=== PATIENT | male | born 1965 | race Caucasian/White ===

== ENCOUNTER 2017-09-09 15:11 | Observation (INO) | payer OTHER ==
[~2017-09-09] VITALS: Ht 172.7 cm; Wt 74.0 kg
[2017-09-09] VITALS (8 sets, daily range): BP systolic 137–152; BP diastolic 68–97; PULSE 56–96; RESP 16–18; TEMP 98.4–98.6; O2SAT 98–100
[~2017-09-09 15:11] MED LIST: CELE20TA PO; CYCL10TA PO; HYDR-3534 PO; LORA-392 PO
[2017-09-09] MEDS ORDERED: HYDR-3580 PO (15:27)
[2017-09-09] MEDS ORDERED: ONDANSETRON HCL 4 MG/2 ML VIAL IV PUSH ONE (15:30)
[2017-09-09] MEDS ORDERED: ASPIRIN 81 MG CHEW TAB PO ONE (15:30)
[2017-09-09] MEDS ORDERED: SODIUM CHLORIDE 0.9% FLUSH 10 ML FLUSH IVF PRN (15:30)
[2017-09-09] MEDS ORDERED: MORPHINE SULFATE 4 MG/ML INJ IV PUSH ONE (15:30)
--- NOTE | 2017-09-09 15:45 | RADRPT ---
EXAM DATE/TIME: 09/09/2017 15:31 [facility] COMPARISON: No previous studies available for comparison. INDICATIONS : Left side chest pain with shortness of breath. MEDICAL HISTORY : None. SURGICAL HISTORY : None. ENCOUNTER: Initial ACUITY: 1 day PAIN SCORE: 4/10 LOCATION: Left chest FINDINGS: A single view of the chest demonstrates the lungs to be symmetrically aerated without evidence of mas s, infiltrate or effusion. The cardiomediastinal contours are unremarkable. Osseous structures are intact. Multiple overlying electrocardiogram leads are present. CONCLUSION: No acute disease. Roddy Deluca MD on September 09, 2017 at 15:42 Board Certified Radiologist. This report was verified electronically.
[2017-09-09 15:48] LABS: AUTOMATED NEUTROPHIL # 5.2 TH/MM3 (1.8-7.7); BASOPHIL # 0.3 TH/MM3 (0-0.2); BASOPHIL % 2.7 % (0.0-2.0); EOSINOPHIL # 0.3 TH/MM3 (0-0.4); EOSINOPHIL % 2.7 % (0.0-4.0); HEMOGLOBIN 16.5 GM/DL (13.0-17.0); MEAN CELL VOLUME 93.5 FL (80.0-100.0); MEAN CORPUSCULAR HEMOGLOBIN 31.4 PG (27.0-34.0); MEAN CORPUSCULAR HGB CONC 33.6 % (32.0-36.0); MEAN PLATELET VOLUME 8.5 FL (7.0-11.0); MONO % 6.1 % (0.0-8.0); MONOCYTE # 0.6 TH/MM3 (0-0.9); NEUT % 56.5 % (16.0-70.0); PLATELET COUNT 341 TH/MM3 (150-450); RED BLOOD COUNT 5.24 MIL/MM3 (4.50-5.90); RED CELL DISTRIBUTION WIDTH 13.9 % (11.6-17.2); WHITE BLOOD COUNT 9.4 TH/MM3 (4.0-11.0)
[2017-09-09 15:55] LABS: CHLORIDE 105 MEQ/L (98-107); SODIUM (NA) 136 MEQ/L (136-145)
[2017-09-09 15:59] LABS: ALBUMIN 3.5 GM/DL (3.4-5.0); BICARBONATE 23.6 MEQ/L (21.0-32.0); BLOOD UREA NITROGEN 10 MG/DL (7-18); CALCIUM 8.4 MG/DL (8.5-10.1); GLUCOSE,RANDOM 110 MG/DL (74-106)
[2017-09-09 16:02] LABS: ALT (GPT) 67 U/L (12-78); AST (GOT) 40 U/L (15-37); GLOMERULAR FILTRATION RATE 58 ML/MIN (>89)
[2017-09-09 16:04] LABS: TOTAL BILIRUBIN ADULT 0.6 MG/DL (0.2-1.0); TOTAL PROTEIN 7.5 GM/DL (6.4-8.2)
[2017-09-09 16:05] LABS: ALKALINE PHOSPHATASE 183 U/L (45-117)
[2017-09-09 16:07] LABS: TROPONIN I LESS THAN 0.02 NG/ML (0.02-0.05)
[2017-09-09 16:18] LABS: INTERNATIONAL NORMALIZED RATIO 1.1 RATIO; PROTHROMBIN TIME - PATIENT 10.7 SEC (9.8-11.6)
[2017-09-09] MEDS ORDERED: IOHEXOL 350 MG/ML 10 ML VIAL (for RAD DIAG) IVCONTRAST ONE (16:50)
[2017-09-09] MEDS ORDERED: diphenhydrAMINE HCL 50 MG/ML VIAL IV PUSH ONE (17:00)
--- NOTE | 2017-09-09 17:11 | RADRPT ---
EXAM DATE/TIME: 09/09/2017 16:41 [facility] COMPARISON: CHEST SINGLE AP, September 09, 2017, 15:31. INDICATIONS : Chest pain. IV CONTRAST: 65 cc Omnipaque 350 (iohexol) IV RADIATION DOSE: 13.41 CTDIvol (mGy) MEDICAL HISTORY : Deep venous thrombosis. SURGICAL HISTORY : Appendectomy. ENCOUNTER: Initial ACUITY: 2 days PAIN SCALE: 4/10 LOCATION: chest TECHNIQUE: Volumetric scanning of the chest was performed using a pulmonary embolism protocol MIP images were re constructed. Using automated exposure control and adjustment of the mA and/or kV according to patien t size, radiation dose was kept as low as reasonably achievable to obtain optimal diagnostic quality images. DICOM format image data is available electronically for review and comparison. Follow-up recommendations for detected pulmonary nodules are based at a minimum on nodule size and pa tient risk factors according to Fleischner Society Guidelines. FINDINGS: PULMONARY ARTERIES: The main pulmonary artery and right left branch vessels are intact with no filling defects. There is only a single tiny 4 mm filling defect in one of the medial right lower lobe pulmonary arteries best seen on coronal image #103. LUNGS: There is no consolidation or pneumothorax . No concerning pulmonary nodule is visualized. PLEURAE: There is no pleural thickening or pleural effusion. MEDIASTINUM: There is good visualization of the great vessels of the middle mediastinum. No evidence of mediastin al or hilar adenopathy/mass. MUSCULOSKELETAL: Within normal limits for patient age. MISCELLANEOUS: The visualized upper abdominal organs demonstrate no acute abnormality. CONCLUSION: 1. Single tiny pulmonary emboli in one of the medial right lower lobe pulmonary arteries. 2. The lungs are clear. Roddy Deluca MD on September 09, 2017 at 17:05 Board Certified Radiologist. This report was verified electronically.
--- NOTE | 2017-09-09 17:51 | PD ---
HPI Chief Complaint: Chest Pain Time Seen by Provider: 15:23 Travel History International Travel<30 days: No Contact w/Intl Traveler<30days: No Traveled to known affect area: No History of Present Illness HPI Patient is a 52 year old male who comes in complaining of left sided chest pain that radiates to his back and down his left arm. He says he has had some occasional pain recently, but today it came on severely this afternoon. He says he was laying in bed when it came on. He has had some shortness of breath and nausea. He denies fever chills. Denies cough or cold. He has had superficial clots in his right leg in the past, but no DVTs or PEs in the past. He says that he has a strong family history of cardiac disease and MIs in his father. He is a smoker. Severity is mild to moderate. PFSH Past Medical History Hx Anticoagulant Therapy: No Anxiety: Yes Depression: Yes Diabetes: No Diminished Hearing: No Deep Vein Thrombosis: Yes (KLIPPELTRENAUNAY SYNDROME) Respiratory: Yes (PNEUMONIA [id number]) Tetanus Vaccination: Unknown Past Surgical History Appendectomy: Yes (1973) Social History Alcohol Use: Yes ("MAYBE ONCE A YEAR IF THAT.") Tobacco Use: Yes () Substance Use: No Allergies-Medications (Allergen,Severity, Reaction): Coded Allergies: penicillin G (Unverified Allergy, Intermediate, HIVES, 09/09/17) Iodinated Contrast- Oral and IV Dye (Verified Allergy, Mild, feet and ears itching, 09/10/17) Reported Meds & Prescriptions Reported Meds & Active Scripts Active Review of Systems Except as stated in HPI: all other systems reviewed are Neg General / Constitutional: No: Fever, Chills HENT: No: Headaches, Lightheadedness Cardiovascular: Positive: Chest Pain or Discomfort Respiratory: Positive: Shortness of Breath Gastrointestinal: Positive: Nausea, No: Vomiting Musculoskeletal: No: Edema, Pain Skin: No Rash, No Change in Pigmentation Neurologic: No: Weakness, Dizziness Physical Exam Narrative GENERAL: Awake and alert, no acute distress. SKIN: Focused skin assessment warm/dry. HEAD: Atraumatic. Normocephalic. EYES: Pupils equal and round. No scleral icterus. ENT: Mucous membranes pink and moist. NECK: Trachea midline. No JVD. CARDIOVASCULAR: Regular rate and rhythm. No murmur appreciated. RESPIRATORY: No accessory muscle use. Clear to auscultation. Breath sounds equal bilaterally. GASTROINTESTINAL: Abdomen soft, non-tender, nondistended. MUSCULOSKELETAL: No obvious deformities. No clubbing. No cyanosis. Several varicose veins to the right leg, right leg is enlarged compared to left. NEUROLOGICAL: Awake and alert. No obvious cranial nerve deficits. Motor grossly within normal limits. Normal speech. PSYCHIATRIC: Appropriate mood and affect; insight and judgment normal. Data Data Last Documented VS Vital Signs Date Time Temp Pulse Resp B/P (MAP) Pulse Ox O2 Delivery O2 Flow Rate FiO2 09/09/17 17:03 63 16 144/83 (103) 100 Nasal Cannula 2.00 09/09/17 15:27 98.4 Orders Orders Ckmb (Isoenzyme) Profile (09/09/17 15:29) Complete Blood Count With Diff (09/09/17 15:29) Comprehensive Metabolic Panel (09/09/17 15:29) Prothrombin Time / Inr (Pt) (09/09/17 15:29) Act Partial Throm Time (Ptt) (09/09/17 15:29) Troponin I (09/09/17 15:29) Lipase (09/09/17 15:29) Chest, Single Ap (09/09/17 15:29) Ecg Monitoring (09/09/17 15:29) Bilateral Bp Monitoring (09/09/17 15:29) Iv Access Insert/Monitor (09/09/17 15:29) Oximetry (09/09/17 15:29) Oxygen Administration (09/09/17 15:29) Aspirin Chew (Aspirin Chew) (09/09/17 15:30) Morphine Inj (Morphine Inj) (09/09/17 15:30) Sodium Chloride 0.9% Flush (Ns Flush) (09/09/17 15:30) Ct Pulmonary Angiogram (09/09/17 15:29) Ondansetron Inj (Zofran Inj) (09/09/17 15:30) Iohexol 350 Inj (Omnipaque 350 Inj) (09/09/17 16:50) Diphenhydramine Inj (Benadryl Inj) (09/09/17 17:00) Heparin-D5w 25,000 U/250 Ml (Heparin-D5w (09/09/17 17:45) Act Partial Throm Time (Ptt) (09/10/17 00:31) Admit Order (Ed Use Only) (09/09/17 ) Labs Laboratory Tests Test 09/09/17 15:33 White Blood Count 9.4 TH/MM3 Red Blood Count 5.24 MIL/MM3 Hemoglobin 16.5 GM/DL Hematocrit 49.0 % Mean Corpuscular Volume 93.5 FL Mean Corpuscular Hemoglobin 31.4 PG Mean Corpuscular Hemoglobin Concent 33.6 % Red Cell Distribution Width 13.9 % Platelet Count 341 TH/MM3 Mean Platelet Volume 8.5 FL Neutrophils (%) (Auto) 56.5 % Lymphocytes (%) (Auto) 32.0 % Monocytes (%) (Auto) 6.1 % Eosinophils (%) (Auto) 2.7 % Basophils (%) (Auto) 2.7 % Neutrophils # (Auto) 5.2 TH/MM3 Lymphocytes # (Auto) 3.0 TH/MM3 Monocytes # (Auto) 0.6 TH/MM3 Eosinophils # (Auto) 0.3 TH/MM3 Basophils # (Auto) 0.3 TH/MM3 CBC Comment DIFF FINAL Differential Comment Prothrombin Time 10.7 SEC Prothromb Time International Ratio 1.1 RATIO Activated Partial Thromboplast Time 25.2 SEC Blood Urea Nitrogen 10 MG/DL Creatinine 1.30 MG/DL Random Glucose 110 MG/DL Total Protein 7.5 GM/DL Albumin 3.5 GM/DL Calcium Level 8.4 MG/DL Alkaline Phosphatase 183 U/L Aspartate Amino Transf (AST/SGOT) 40 U/L Alanine Aminotransferase (ALT/SGPT) 67 U/L Total Bilirubin 0.6 MG/DL Sodium Level 136 MEQ/L Potassium Level 3.9 MEQ/L Chloride Level 105 MEQ/L Carbon Dioxide Level 23.6 MEQ/L Anion Gap 7 MEQ/L Estimat Glomerular Filtration Rate 58 ML/MIN Total Creatine Kinase 91 U/L Troponin I LESS THAN 0.02 NG/ML Lipase 414 U/L MDM Medical Decision Making Medical Screen Exam Complete: Yes Emergency Medical Condition: Yes Medical Record Reviewed: Yes Interpretation(s) ECG shows normal sinus rhythm at a rate of 89, short MS interval, no ST elevation or depression Differential Diagnosis ACS versus NSTEMI versus STEMI versus PE Narrative Course Patient is a 52-year-old male who comes in complaining of left-sided chest pain. IV established, labs sent. Patient connected to the athletic monitor. Given an aspirin. Given morphine and Zofran. Labs show a elevated lipase of 414. Troponin is negative. CTA of the chest is concerning for a right-sided pulmonary embolus. Last 24 hours Impressions Chest X-Ray 09/09/17 1529 Signed Impressions: Service Date/Time: Saturday, September 09, 2017 15:31 - CONCLUSION: No acute disease. Roddy Deluca MD CT Angiography 09/09/17 1529 Signed Impressions: Service Date/Time: Saturday, September 09, 2017 16:41 - CONCLUSION: 1. Single tiny pulmonary emboli in one of the medial right lower lobe pulmonary arteries. 2. The lungs are clear. Roddy Deluca MD Patient started on heparin. He will be admitted for further management and for ACS rule out. Diagnosis Primary Impression: Chest pain Qualified Codes: R07.9 - Chest pain, unspecified Additional Impressions: Pancreatitis Qualified Codes: K85.90 - Acute pancreatitis without necrosis or infection, unspecified Pulmonary embolism Qualified Codes: I26.99 - Other pulmonary embolism without acute cor pulmonale Admitting Information Admitting Physician Requests: Observation Scripts Rivaroxaban (Xarelto) 15 Mg Tab 15 MG PO Q12HR for Blood Clot Prevention, #21 TAB 0 Refills Prov: Jose A Kenney DO 09/11/17 Atorvastatin (Lipitor) 40 Mg Tab 40 MG PO HS for Cholesterol Management, #30 TAB 0 Refills Prov: Jose A Kenney DO 09/11/17 Hydrocodone-Acetaminophen (Hydrocodone-Acetaminophen) 7.5 Mg-325 Mg Tab 1 TAB PO Q6H Y for PAIN, #7 TAB 0 Refills Prov: Jose A Kenney DO 09/11/17 Maddi Jackson MD Sep 09, 2017 17:51
[2017-09-09] MEDS ORDERED: IOHEXOL 350 MG/ML 50 ML BTL (for Cath Lab) OTHER ONE (17:53)
[2017-09-09] MEDS: HEPARIN-D5W 25,000 U/250 ML 250 ML IV PRN (18:07)
[2017-09-09] MEDS ORDERED: MAGNESIUM HYDROXIDE SUSP 30 ML CUP PO PRN (18:45)
[2017-09-09] MEDS ORDERED: ACETAMINOPHEN/HYDROcodone 325 MG/7.5 MG TAB PO PRN (18:45)
[2017-09-09] MEDS ORDERED: BISACODYL 10 MG SUPP RECTAL PRN (18:45)
[2017-09-09] MEDS ORDERED: NALOXONE HCL 0.4 MG/ML AMP IV PUSH PRN (18:45)
[2017-09-09] MEDS ORDERED: LACTULOSE SYRUP 20 GM/30 ML CUP PO PRN (18:45)
[2017-09-09] MEDS ORDERED: SODIUM CHLORIDE 0.9% FLUSH 10 ML FLUSH IV FLUSH PRN (18:45)
[2017-09-09] MEDS ORDERED: SENNOSIDES 8.6 MG TAB PO PRN (18:45)
--- NOTE | 2017-09-09 19:03 | HHI.HP ---
HPI Service [facility] Primary Care Physician Kalin Voss, DO Admission Diagnosis Chest Pain, PE Chief Complaint: chest pain left side Travel History International Travel<30 Days: No Contact w/Intl Traveler <30 Da: No Traveled to Known Affected Are: No History of Present Illness Patient is a 52 year old male who comes in complaining of left sided chest pain that radiates to his back and down his left arm. He says he has fatigue and loss of energy for 2 days , but today developed left sided chest pain described as tightness which came on while he was laying in bed. He has had some shortness of breath and nausea. He denies fever chills. Denies cough or cold. Patient did feel hot as he has strong FH heart disease came to hospital. 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 He says that he has a strong family history of cardiac disease and MIs in his father. He is a smoker. Severity is mild to moderate. Patient had normal chest xray and ekg and initial enzymes ,had CTA with showed very mild PE branch of rt pulmonary artery,discussed with cardiology and symptoms suggest more cardiac , discussed with cardiology transfer to cardiac unit continue heparin . Review of Systems Constitutional: COMPLAINS OF: Fatigue Respiratory: COMPLAINS OF: Shortness of breath Cardiovascular: COMPLAINS OF: Chest pain Past Family Social History Past Medical History Klippeltrnaunay syndrome-chronic varicosities pneumonia 2006 Past Surgical History appendix, Reported Medications loratab prn for rt leg,lorazepam 0.5 daily citalopram 10 daily Allergies: Coded Allergies: penicillin G (Unverified Allergy, Intermediate, HIVES, 09/09/17) Social History smokes 1/4 ppd social alcohol Physical Exam Vital Signs Vital Signs Date Time Temp Pulse Resp B/P (MAP) Pulse Ox O2 Delivery O2 Flow Rate FiO2 09/09/17 17:03 63 16 144/83 (103) 100 Nasal Cannula 2.00 09/09/17 15:51 73 16 152/97 (115) 100 Nasal Cannula 2.00 09/09/17 15:43 16 98 Nasal Cannula 2.00 09/09/17 15:43 98 Nasal Cannula 2.00 09/09/17 15:27 98.4 87 16 138/94 (109) 98 09/09/17 15:16 16 98 Room Air Physical Exam GENERAL: This is a well-nourished, well-developed patient, in no apparent distress. SKIN: No rashes, ecchymoses or lesions. Cool and dry. HEAD: Atraumatic. Normocephalic. No temporal or scalp tenderness. EYES: Pupils equal round and reactive. Extraocular motions intact. No scleral icterus. No injection or drainage. ENT: Nose without bleeding, purulent drainage or septal hematoma. Throat without erythema, tonsillar hypertrophy or exudate. Uvula midline. Airway patent. NECK: Trachea midline. No JVD or lymphadenopathy. Supple, nontender, no meningeal signs. CARDIOVASCULAR: Regular rate and rhythm without murmurs, gallops, or rubs. RESPIRATORY: Clear to auscultation. Breath sounds equal bilaterally. No wheezes , rales, or rhonchi. GASTROINTESTINAL: Abdomen soft, non-tender, nondistended. No hepato-splenomegaly , or palpable masses. No guarding. MUSCULOSKELETAL: Extremities without clubbing, cyanosis, or edema. No joint tenderness, effusion, or edema noted. No calf tenderness. Negative Homans sign bilaterally. NEUROLOGICAL: Awake and alert. Cranial nerves II through XII intact. Motor and sensory grossly within normal limits. Five out of 5 muscle strength in all muscle groups. Normal speech. Laboratory Laboratory Tests Test 09/09/17 15:33 White Blood Count 9.4 Red Blood Count 5.24 Hemoglobin 16.5 Hematocrit 49.0 Mean Corpuscular Volume 93.5 Mean Corpuscular Hemoglobin 31.4 Mean Corpuscular Hemoglobin Concent 33.6 Red Cell Distribution Width 13.9 Platelet Count 341 Mean Platelet Volume 8.5 Neutrophils (%) (Auto) 56.5 Lymphocytes (%) (Auto) 32.0 Monocytes (%) (Auto) 6.1 Eosinophils (%) (Auto) 2.7 Basophils (%) (Auto) 2.7 Neutrophils # (Auto) 5.2 Lymphocytes # (Auto) 3.0 Monocytes # (Auto) 0.6 Eosinophils # (Auto) 0.3 Basophils # (Auto) 0.3 CBC Comment DIFF FINAL Differential Comment Prothrombin Time 10.7 Prothromb Time International Ratio 1.1 Activated Partial Thromboplast Time 25.2 Blood Urea Nitrogen 10 Creatinine 1.30 Random Glucose 110 Total Protein 7.5 Albumin 3.5 Calcium Level 8.4 Alkaline Phosphatase 183 Aspartate Amino Transf (AST/SGOT) 40 Alanine Aminotransferase (ALT/SGPT) 67 Total Bilirubin 0.6 Sodium Level 136 Potassium Level 3.9 Chloride Level 105 Carbon Dioxide Level 23.6 Anion Gap 7 Estimat Glomerular Filtration Rate 58 Total Creatine Kinase 91 Troponin I LESS THAN 0.02 Lipase 414 Result Diagram: 09/09/17 1533 09/09/17 1533 Imaging Last 24 hours Impressions Chest X-Ray 09/09/17 1529 Signed Impressions: Service Date/Time: Saturday, September 09, 2017 15:31 - CONCLUSION: No acute disease. Roddy Deluca MD CT Angiography 09/09/17 1529 Signed Impressions: Service Date/Time: Saturday, September 09, 2017 16:41 - CONCLUSION: 1. Single tiny pulmonary emboli in one of the medial right lower lobe pulmonary arteries. 2. The lungs are clear. Roddy Deluca MD Course ekg-no acute changes troponin negative lipase 414 Caprini VTE Risk Assessment Caprini VTE Risk Assessment: Mod/High Risk (score >= 2) Caprini Risk Assessment Model Point Value = 1 Point Value = 2 Point Value = 3 Point Value = 5 Age 41-60 Minor surgery BMI > 25 kg/m2 Swollen legs Varicose veins or History of unexplained or recurrent spontaneous Oral contraceptives or hormone replacement Sepsis (< 1 month) Serious lung disease, including pneumonia (< 1 month) Abnormal pulmonary function Acute myocardial infarction Congestive heart failure (< 1 month) History of inflammatory bowel disease Medical patient at bed rest Age 61-74 Arthroscopic surgery Major open surgery (> 45 min) Laparoscopic surgery (> 45 min) Malignancy Confined to bed (> 72 hours) Immobilizing plaster cast Central venous access Age >= 75 History of VTE Family history of VTE Factor V Leiden Prothrombin [id number] Lupus anticoagulant Anticardiolipin antibodies Elevated serum homocysteine Heparin-induced thrombocytopenia Other congenital or acquired thrombophilia Stroke (< 1 month) Elective arthroplasty Hip, pelvis, or leg fracture Acute spinal cord injury (< 1 month) Prophylaxis Regimen Total Risk Factor Score Risk Level Prophylaxis Regimen 0-1 Low Early ambulation 2 Moderate Order ONE of the following: *Sequential Compression Device (SCD) *Heparin 5000 units SQ BID 3-4 Higher Order ONE of the following medications: *Heparin 5000 units SQ TID *Enoxaparin/Lovenox 40 mg SQ daily (WT < 150 kg, CrCl > 30 mL/min) *Enoxaparin/Lovenox 30 mg SQ daily (WT < 150 kg, CrCl > 10-29 mL/min) *Enoxaparin/Lovenox 30 mg SQ BID (WT < 150 kg, CrCl > 30 mL/min) AND/OR *Sequential Compression Device (SCD) 5 or more Highest Order ONE of the following medications: *Heparin 5000 units SQ TID (Preferred with Epidurals) *Enoxaparin/Lovenox 40 mg SQ daily (WT < 150 kg, CrCl > 30 mL/min) *Enoxaparin/Lovenox 30 mg SQ daily (WT < 150 kg, CrCl > 10-29 mL/min) *Enoxaparin/Lovenox 30 mg SQ BID (WT < 150 kg, CrCl > 30 mL/min) AND *Sequential Compression Device (SCD) Assessment and Plan Problem List: (1) Chest pain ICD Codes: R07.9 - Chest pain, unspecified Status: Acute Plan: will obtain cardiac consult ,serial enzymes and ekg NPO after midnight continue heparin morphine for pain (2) Pulmonary embolism ICD Codes: I26.99 - Other pulmonary embolism without acute cor pulmonale Status: Acute Plan: small tiny rt sided PE continue heparin for now (3) Abnormal serum level of lipase ICD Codes: R74.8 - Abnormal levels of other serum enzymes Plan: will recheck lipase and get abdominal ultrasound Assessment and Plan further plan pending further lab and ekg and cardiac evaluation Code Status full Discussed Condition With patient Problem Qualifiers (1) Chest pain: Qualified Codes: R07.9 - Chest pain, unspecified (2) Pulmonary embolism: Qualified Codes: I26.99 - Other pulmonary embolism without acute cor pulmonale Jules Mendez MD Sep 09, 2017 19:03
[2017-09-09 20:12] LABS: TROPONIN I LESS THAN 0.02 NG/ML (0.02-0.05)
[2017-09-09] MEDS: ONDANSETRON HCL 4 MG/2 ML VIAL IVP PRN (20:15)
[2017-09-09] MEDS: MORPHINE SULFATE 2 MG/ML SYRINGE IV PUSH PRN (20:15)
[2017-09-09] MEDS: NICOTINE 21 MG/24 HR PATCH T-DERMAL SCH (20:39)
[2017-09-09] MEDS: DOCUSATE SODIUM 50 MG/SENNA 8.6 MG TAB PO SCH (21:00)
--- NOTE | 2017-09-09 21:52 | EKG ---
Date Performed: 09/09/2017 Time Performed: 19:40:38 PTAGE: 52 years EKG: SINUS BRADYCARDIA BORDERLINE ECG PREVIOUS TRACING : 09/09/2017 15.15 No significant change from previous tracing noted. DOCTOR: Clifford Hays Interpretating Date/Time 09/09/2017 21:52:11
--- NOTE | 2017-09-09 21:58 | EKG ---
Date Performed: 09/09/2017 Time Performed: 15:15:53 PTAGE: 52 years EKG: Sinus rhythm WITH SHORT WY INTERVAL BORDERLINE ECG NO PREVIOUS TRACING DOCTOR: Clifford Hays Interpretating Date/Time 09/09/2017 21:57:46
[2017-09-10] VITALS (27 sets, daily range): BP systolic 110–148; BP diastolic 75–95; PULSE 52–70; RESP 16–20; TEMP 97.8–98; O2SAT 94–100
[2017-09-10] MEDS: ONDANSETRON HCL 4 MG/2 ML VIAL IVP PRN ×4 (00:28→23:11)
[2017-09-10] MEDS: MORPHINE SULFATE 2 MG/ML SYRINGE IV PUSH PRN ×4 (00:28→23:12)
[2017-09-10] MEDS: SODIUM CHLORIDE 0.9% FLUSH 10 ML FLUSH IV FLUSH SCH ×4 (00:34→21:00)
[2017-09-10] MEDS: TEMAZEPAM 15 MG CAP PO PRN (01:07)
[2017-09-10 01:51] LABS: ALBUMIN 3.3 GM/DL (3.4-5.0); ALT (GPT) 61 U/L (12-78); AST (GOT) 32 U/L (15-37); BICARBONATE 26.7 MEQ/L (21.0-32.0); BLOOD UREA NITROGEN 12 MG/DL (7-18); CALCIUM 7.8 MG/DL (8.5-10.1); CHLORIDE 103 MEQ/L (98-107); CREATININE 1.25 MG/DL (0.60-1.30); GLOMERULAR FILTRATION RATE 60 ML/MIN (>89); GLUCOSE,RANDOM 107 MG/DL (74-106); SODIUM (NA) 138 MEQ/L (136-145)
[2017-09-10 01:55] LABS: ALKALINE PHOSPHATASE 158 U/L (45-117); TOTAL BILIRUBIN ADULT 0.4 MG/DL (0.2-1.0); TOTAL PROTEIN 6.6 GM/DL (6.4-8.2); TROPONIN I LESS THAN 0.02 NG/ML (0.02-0.05)
--- NOTE | 2017-09-10 07:42 | PD.CONS ---
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 The patient states that since last Saturday he has been having increasing episodes of left-sided chest pain that radiates to his back and down his left arm with associated episodes of increasing fatigue and shortness of breath over the weekend. These episodes have been occurring at rest, the patient denies being very active at baseline. The patient is concerned for his heart because his father had heart attack at age 46. He was found to have a tiny right-sided pulmonary embolism and started on heparin GTT. Patient denies any pain with deep breathing. 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, tobacco abuse, anxiety Past Surgical History Appendectomy Reported Medications Reported Meds & Active Scripts Active Reported Hydrocodone-Acetaminophen 7.5 Mg-325 Mg Tab 1 Tab PO Q6H PRN Active Ordered Medications Current Medications Medications (Trade) Dose Ordered Sig/Tevin Route Start Time Stop Time Status Last Admin (NS Flush) 2 ml UNSCH PRN IVF 09/09/17 15:30 Heparin Sodium/ Dextrose 250 ml @ 13 mls/hr TITRATE PRN IV 09/09/17 17:45 09/09/17 18:07 (Habitrol 21 Mg Patch.24 Hr) 1 patch DAILY T-DERMAL 09/09/17 21:00 09/09/17 20:39 ([place] 7.5-325 Mg) 1 tab Q6H PRN PO 09/09/17 18:45 (NS Flush) 2 ml UNSCH PRN IV FLUSH 09/09/17 18:45 (NS Flush) 2 ml BID IV FLUSH 09/09/17 21:00 09/10/17 00:34 (Zofran Inj) 4 mg Q6H PRN IVP 09/09/17 18:45 09/10/17 00:28 (Restoril) 15 mg HS PRN PO 09/09/17 18:45 09/10/17 01:07 (Morphine Inj) 4 mg Q3H PRN IV PUSH 09/09/17 18:45 09/10/17 00:28 (Narcan Inj) 0.4 mg UNSCH PRN IV PUSH 09/09/17 18:45 (Bessie-Colace) 1 tab BID PO 09/09/17 21:00 (Milk Of Magnesia Liq) 30 ml Q12H PRN PO 09/09/17 18:45 (Senokot) 17.2 mg Q12H PRN PO 09/09/17 18:45 (Dulcolax Supp) 10 mg DAILY PRN RECTAL 09/09/17 18:45 (Lactulose Liq) 30 ml DAILY PRN PO 09/09/17 18:45 Family History Father with NC at age 46 Social History Smokes daily Physical Exam Vital Signs Vital Signs Date Time Temp Pulse Resp B/P (MAP) Pulse Ox O2 Delivery O2 Flow Rate FiO2 09/10/17 06:00 54 09/10/17 05:00 56 09/10/17 04:00 54 09/10/17 03:30 97.8 64 16 113/75 (88) 100 09/10/17 03:00 56 09/10/17 02:00 60 09/10/17 01:00 56 09/10/17 00:00 56 09/09/17 23:52 98.6 56 18 137/86 (103) 100 09/09/17 22:42 99 2.00 09/09/17 21:40 99 Nasal Cannula 2.00 09/09/17 21:40 96 16 146/68 (94) 99 Nasal Cannula 2.00 09/09/17 19:47 16 99 Nasal Cannula 2.00 09/09/17 19:47 89 16 146/83 (104) 99 Nasal Cannula 2.00 09/09/17 17:03 63 16 144/83 (103) 100 Nasal Cannula 2.00 09/09/17 15:51 73 16 152/97 (115) 100 Nasal Cannula 2.00 09/09/17 15:43 16 98 Nasal Cannula 2.00 09/09/17 15:43 98 Nasal Cannula 2.00 09/09/17 15:27 98.4 87 16 138/94 (109) 98 09/09/17 15:16 16 98 Room Air Physical Exam GENERAL: Well-developed well-nourished. In no acute distress. NECK: No carotid bruits. No JVD. CARDIOVASCULAR: Regular rate and rhythm. No murmur appreciated. RESPIRATORY: No accessory muscle use. Clear to auscultation. Breath sounds equal bilaterally. MUSCULOSKELETAL: No clubbing or cyanosis. No edema. NEUROLOGICAL: Awake and alert. Normal speech. Laboratory Laboratory Tests Test 09/09/17 15:33 09/09/17 19:40 09/10/17 01:22 09/10/17 07:21 White Blood Count 9.4 Red Blood Count 5.24 Hemoglobin 16.5 Hematocrit 49.0 Mean Corpuscular Volume 93.5 Mean Corpuscular Hemoglobin 31.4 Mean Corpuscular Hemoglobin Concent 33.6 Red Cell Distribution Width 13.9 Platelet Count 341 Mean Platelet Volume 8.5 Neutrophils (%) (Auto) 56.5 Lymphocytes (%) (Auto) 32.0 Monocytes (%) (Auto) 6.1 Eosinophils (%) (Auto) 2.7 Basophils (%) (Auto) 2.7 Neutrophils # (Auto) 5.2 Lymphocytes # (Auto) 3.0 Monocytes # (Auto) 0.6 Eosinophils # (Auto) 0.3 Basophils # (Auto) 0.3 CBC Comment DIFF FINAL Differential Comment Prothrombin Time 10.7 Prothromb Time International Ratio 1.1 Activated Partial Thromboplast Time 25.2 47.9 Blood Urea Nitrogen 10 12 Creatinine 1.30 1.25 Random Glucose 110 107 Total Protein 7.5 6.6 Albumin 3.5 3.3 Calcium Level 8.4 7.8 Alkaline Phosphatase 183 158 Aspartate Amino Transf (AST/SGOT) 40 32 Alanine Aminotransferase (ALT/SGPT) 67 61 Total Bilirubin 0.6 0.4 Sodium Level 136 138 Potassium Level 3.9 3.8 Chloride Level 105 103 Carbon Dioxide Level 23.6 26.7 Anion Gap 7 8 Estimat Glomerular Filtration Rate 58 60 Total Creatine Kinase 91 72 66 Troponin I LESS THAN 0.02 LESS THAN 0.02 LESS THAN 0.02 Lipase 414 247 Result Diagram: 09/09/17 1533 09/10/17 0122 Imaging Last Impressions Chest X-Ray 09/09/17 1529 Signed Impressions: Service Date/Time: Saturday, September 09, 2017 15:31 - CONCLUSION: No acute disease. Roddy Deluca MD CT Angiography 09/09/17 1529 Signed Impressions: Service Date/Time: Saturday, September 09, 2017 16:41 - CONCLUSION: 1. Single tiny pulmonary emboli in one of the medial right lower lobe pulmonary arteries. 2. The lungs are clear. 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 Discussed Condition With Patient, RN, Hakan Rayo Sep 10, 2017 07:42
[2017-09-10] MEDS: NICOTINE 21 MG/24 HR PATCH T-DERMAL SCH (08:05)
--- NOTE | 2017-09-10 08:23 | EKG ---
Date Performed: 09/10/2017 Time Performed: 00:23:40 PTAGE: 52 years EKG: Sinus bradycardia Inferior and lateral ST elevation - possible early repolarization Borderl ine ECG PREVIOUS TRACING : 09/09/2017 19.40 No significant change from previous tracing noted. DOCTOR: Clifford Hays Interpretating Date/Time 09/10/2017 08:22:44
--- NOTE | 2017-09-10 09:06 | HHI.PR ---
Subjective Remarks Pt had some chest pain this morning with radiation to the left shoulder and back Pt was given Morphine with relief of the pain Objective Vitals Vital Signs Date Time Temp Pulse Resp B/P (MAP) Pulse Ox O2 Delivery O2 Flow Rate FiO2 09/10/17 06:00 54 09/10/17 05:00 56 09/10/17 04:00 54 09/10/17 03:30 97.8 64 16 113/75 (88) 100 09/10/17 03:00 56 09/10/17 02:00 60 09/10/17 01:00 56 09/10/17 00:00 56 09/09/17 23:52 98.6 56 18 137/86 (103) 100 09/09/17 22:42 99 2.00 09/09/17 21:40 99 Nasal Cannula 2.00 09/09/17 21:40 96 16 146/68 (94) 99 Nasal Cannula 2.00 09/09/17 19:47 16 99 Nasal Cannula 2.00 09/09/17 19:47 89 16 146/83 (104) 99 Nasal Cannula 2.00 09/09/17 17:03 63 16 144/83 (103) 100 Nasal Cannula 2.00 09/09/17 15:51 73 16 152/97 (115) 100 Nasal Cannula 2.00 09/09/17 15:43 16 98 Nasal Cannula 2.00 09/09/17 15:43 98 Nasal Cannula 2.00 09/09/17 15:27 98.4 87 16 138/94 (109) 98 09/09/17 15:16 16 98 Room Air Result Diagram: 09/09/17 1533 09/10/17 0122 Other Results Laboratory Tests Test 09/09/17 15:33 09/09/17 19:40 09/10/17 01:22 09/10/17 07:21 White Blood Count 9.4 TH/MM3 Red Blood Count 5.24 MIL/MM3 Hemoglobin 16.5 GM/DL Hematocrit 49.0 % Mean Corpuscular Volume 93.5 FL Mean Corpuscular Hemoglobin 31.4 PG Mean Corpuscular Hemoglobin Concent 33.6 % Red Cell Distribution Width 13.9 % Platelet Count 341 TH/MM3 Mean Platelet Volume 8.5 FL Neutrophils (%) (Auto) 56.5 % Lymphocytes (%) (Auto) 32.0 % Monocytes (%) (Auto) 6.1 % Eosinophils (%) (Auto) 2.7 % Basophils (%) (Auto) 2.7 % Neutrophils # (Auto) 5.2 TH/MM3 Lymphocytes # (Auto) 3.0 TH/MM3 Monocytes # (Auto) 0.6 TH/MM3 Eosinophils # (Auto) 0.3 TH/MM3 Basophils # (Auto) 0.3 TH/MM3 CBC Comment DIFF FINAL Differential Comment Prothrombin Time 10.7 SEC Prothromb Time International Ratio 1.1 RATIO Activated Partial Thromboplast Time 25.2 SEC 47.9 SEC 63.2 SEC Blood Urea Nitrogen 10 MG/DL 12 MG/DL Creatinine 1.30 MG/DL 1.25 MG/DL Random Glucose 110 MG/DL 107 MG/DL Total Protein 7.5 GM/DL 6.6 GM/DL Albumin 3.5 GM/DL 3.3 GM/DL Calcium Level 8.4 MG/DL 7.8 MG/DL Alkaline Phosphatase 183 U/L 158 U/L Aspartate Amino Transf (AST/SGOT) 40 U/L 32 U/L Alanine Aminotransferase (ALT/SGPT) 67 U/L 61 U/L Total Bilirubin 0.6 MG/DL 0.4 MG/DL Sodium Level 136 MEQ/L 138 MEQ/L Potassium Level 3.9 MEQ/L 3.8 MEQ/L Chloride Level 105 MEQ/L 103 MEQ/L Carbon Dioxide Level 23.6 MEQ/L 26.7 MEQ/L Anion Gap 7 MEQ/L 8 MEQ/L Estimat Glomerular Filtration Rate 58 ML/MIN 60 ML/MIN Total Creatine Kinase 91 U/L 72 U/L 66 U/L Troponin I LESS THAN 0.02 NG/ML LESS THAN 0.02 NG/ML LESS THAN 0.02 NG/ML Lipase 414 U/L 247 U/L Imaging Last 24 hours Impressions Chest X-Ray 09/09/171528 Signed Impressions: Service Date/Time: Saturday, September 09, 2017 15:31 - CONCLUSION: No acute disease. Roddy Deluca MD CT Angiography [id number]/09/171528 Signed Impressions: Service Date/Time: Saturday, September 09, 2017 16:41 - CONCLUSION: 1. Single tiny pulmonary emboli in one of the medial right lower lobe pulmonary arteries. 2. The lungs are clear. Roddy Deluca MD Objective Remarks General: NAD, AAox3 Chest: CTA Cardiac: Regular Abd: +BS, soft ND/NT Ext: Several varicose veins to the right leg, right leg is large compared to left. 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 The patient reported 4 days of increasing episodes of left-sided chest pain that radiates to his back and down his left arm with associated episodes of increasing fatigue and shortness of breath over the weekend. These episodes have been occurring at rest, the patient denies being very active at baseline. - Serial CE have remained negative. - Pt was started on Heparin gtt - He was given ASA, Morphine PRN - Cardiology was consulted at admission - Pt is planned for [facility] today (2) Pulmonary embolism ICD Codes: I26.99 - Other pulmonary embolism without acute cor pulmonale Status: Acute Plan: - CTA (09/09) --> Single tiny pulmonary emboli in one of the medial right lower lobe pulmonary arteries. The lungs are clear. - Pt currently on Heparin gtt - LE US is ordered (3) Abnormal serum level of lipase ICD Codes: R74.8 - Abnormal levels of other serum enzymes Plan: - Pts lipase was 414 at admission, etiology unclear - Level normalized on 09/10 - Abd US was ordered at admission Assessment and Plan Patient examined. Assessment and plan formulated with Tabatha Rosas PA-C. I agree with the above. chest pain improved from admission. pt denies n/v, diaphoresis, or SOB. Pt had many questions about his LH which I answered to the best of my ability. Problem Qualifiers (1) Chest pain: Qualified Codes: R07.9 - Chest pain, unspecified (2) Pulmonary embolism: Qualified Codes: I26.99 - Other pulmonary embolism without acute cor pulmonale Tabatha Rosas Sep 10, 2017 09:06 Jose A Kenney DO Sep 10, 2017 09:57
--- NOTE | 2017-09-10 09:21 | RADRPT ---
EXAM DATE/TIME: 09/10/2017 08:18 [facility] COMPARISON: No previous studies available for comparison. INDICATIONS : Increased lab values. MEDICAL HISTORY : Deep vein thrombosis. Pneumonia. Depression. Klippeltrenauay syndrome. SURGICAL HISTORY : Appendectomy. ENCOUNTER: Initial ACUITY: 2 days PAIN SCORE: 6/10 LOCATION: Abdomen. MEASUREMENTS: LIVER: 15.5 cm length COMMON DUCT: 7 mm RIGHT KIDNEY: 9.7 x 5.2 x 4.5 cm LEFT KIDNEY: 9.4 x 5.1 x 5.1 cm SPLEEN: 8.7 cm length AORTA: 2.5cm maximal FINDINGS: LIVER: Normal echotexture without focal lesion or ductal dilatation. COMMON DUCT: No intraluminal mass or stone visualized. GALLBLADDER: Contains no stones, demonstrates no wall thickening or pericholecystic fluid. PANCREAS: Poorly visualized due to overlying bowel gas. RIGHT KIDNEY: No hydronephrosis, stone or mass. LEFT KIDNEY: No hydronephrosis, stone or mass. SPLEEN: No focal lesion. AORTA: Non aneurysmal. IVC: Within normal limits. CONCLUSION: Abdominal ultrasound within normal limits. Ritchie Zhao MD on September 10, 2017 at 9:17 Board Certified Radiologist. This report was verified electronically.
--- NOTE | 2017-09-10 09:21 | RADRPT ---
EXAM DATE/TIME: 09/10/2017 08:42 [facility] COMPARISON: No previous studies available for comparison. INDICATIONS : Pulmonary embolism. MEDICAL HISTORY : Deep vein thrombosis. Pneumonia. Depression. Klippeltrenauay syndrome. SURGICAL HISTORY : Appendectomy. ENCOUNTER: Initial ACUITY: 1 day PAIN SCORE: 6/10 LOCATION: Bilateral leg. TECHNIQUE: Venous ultrasound of the left and right leg was performed from the inguinal ligament to the proximal calf. Real-time, color Doppler and spectral tracing, compression and augmentation techniques were us ed. FINDINGS: RIGHT LEG: There is normal compressibility of the deep venous system from the inguinal region to the proximal ca lf. No echogenic clot is seen in the lumen of the common femoral, femoral, popliteal, and posterior tibial veins. There is a normal response of the venous system to proximal and distal augmentation an d respiration. LEFT LEG: There is normal compressibility of the deep venous system from the inguinal region to the proximal ca lf. No echogenic clot is seen in the lumen of the common femoral, femoral, popliteal, and posterior tibial veins. There is a normal response of the venous system to proximal and distal augmentation an d respiration. CONCLUSION: 1. No sonographic evidence for lower extremity DVT. Corey Knutson MD on September 10, 2017 at 9:17 Board Certified Radiologist. This report was verified electronically.
[2017-09-10] MEDS ORDERED: HEPARIN-NS/PF FLUSH BAG 2,000 ML IV FLUSH ONE (10:49)
[2017-09-10] MEDS ORDERED: diphenhydrAMINE HCL 50 MG/ML VIAL ONE (10:50)
[2017-09-10] MEDS ORDERED: MIDAZOLAM HCL 2 MG/2 ML VIAL ONE ×2 (10:50→11:30)
[2017-09-10] MEDS ORDERED: NITROGLYCERIN INJ 5 ML ONE (10:50)
[2017-09-10] MEDS ORDERED: HEPARIN SODIUM - IV 10,000 UNITS/10 ML VIAL ONE (10:50)
[2017-09-10] MEDS ORDERED: HYDROCORTISONE SOD SUCCINATE 100 MG VIAL ONE (10:50)
[2017-09-10] MEDS ORDERED: FAMOTIDINE 20 MG/2 ML VIAL ONE (10:50)
[2017-09-10] MEDS ORDERED: LIDOCAINE HCL 1% PF 30 ML VIAL ONE (10:51)
[2017-09-10] MEDS ORDERED: SODIUM CHLORIDE 0.9% FLUSH 10 ML FLUSH IV FLUSH PRN (11:45)
[2017-09-10] MEDS ORDERED: MISC INFORMATION XX ONE (11:45)
--- NOTE | 2017-09-10 11:52 | CATHPROC ---
[employer]istics HIS Report Study Information Study Number Admission Scheduled Start Study Start [id number] Sep 09 2017 5:52PM 09/10/2017 Sep 10 2017 10:40AM [place] Service Cardiac Catheterization Admit Source Facility Department Transfer in from another acute care facility [facility] Security Director Physician and Clinical Staff Initial Bishop Damon Extruder Operator Helper Lara Mahoney,SURESH Recorder Becki Mata,RT(R) Scrub Svetlana Lee ,RT(R) Procedures Performed Procedure Location (Site) Vessel Name Coronary Angiograms LCA Left Coronary Coronary Angiograms RCA Right Coronary L Heart Cath Wire insertion Radial (right) Radial Art. Equipment Time Program Coordinator Executive Education Description Size Mfg Part Number Used/Scraped TRANSDUCER, TRUWAVE [id number] 10:40 Bilna * Used W/STOCKCOCK *[id number] WIRE, CHOICE PT EX. SUPPORT [id number] 11:33 [employer] 180CM Used 182CM *[id number] 534-518T *[id number] 534-518T *[id number] 10:40 [employer] PACK, CCL CUSTOM * Used *[id number] 10:40 [employer] SUPPORT, ARTERIAL ADULT [id number] *[id number] Used [id number] 10:40 [employer] PACER PEN, SKIN DUAL W/ RULER * Used *[id number] 11:23 MEDTRONIC JR 5.0 DXTERITY CATHETER fr 5 [id number] Used 11:23 [employer] JR 5.0 DXTERITY CATHETER fr 5 [id number] Used 11:24 [employer] JR 5.0 DXTERITY CATHETER fr 5 [id number] Used BAND, RADIAL COMPRESSION TR [id number] 11:41 [employer] 24CM Used SHORT 24 *[id number] SHEATH, FR6 RADIAL PRELUDE 10:40 [employer] FR 6 [id number] Used EASE 11CM [id number] 10:40 [employer] WIRE, EXCHANGE 260CM 3MMJ 260CM Used *[id number] 10:40 [employer] OMNIPAQUE, 350 MG, 150ML 150ML [id number] Used [id number] 10:40 [employer] BLANKET,WARM AIR CCL * Used *[id number] Equipment Model, Serial, Lot Number and Expiration Data Description Model Number Serial Number Lot Number Expiration Date JR 5.0 DXTERITY CATHETER [id number] 11-23-2019 JR 5.0 DXTERITY CATHETER [id number] 11-23-2019 WIRE, CHOICE PT EX. SUPPORT [id number] 03-28-2019 182CM History: Current Medications Medication Dosage/Unit Route Frequency Last Date/Time Taken ASA HEPARIN History: Allergies Allergy Reaction penicillin G HIVES Contrast Media rash and itching History: Risk Factors Family History of Hypertension Dyslipidemia Previous [place] Previous Heart Failure Premature CAD No No Yes No No Prior Valve Prior PCI Prior CABG Surgery No No No Cerebrovascular Peripheral Artery Chronic Lung On Dialysis Diabetes Disease Disease Disease No No Yes No No History: Symptoms/Diagnosis Selection Items Chest pain History: Stress Tests Stress or Imaging Studies Performed No History: Other Current Smoker Method Packs a Day Years Used Pack Years Yes Cigarettes 4 40 160 Labs Hgb (g/dl) Hct (%) WBC (l/cumm) Platelets (thousands) 11.60-17.00 35.00-51.00 4.00-11.00 150.00-450.00 16.5 49 9.4 341 Glucose (mg/dl) BUN (mg/dl) Creatinine (mg/dl) BUN:Creatinine (1:x) 74.00-106.00 7.00-18.00 0.50-1.30 10.00-20.00 67 12 1.2 10 Na (meq/l) K (meq/l) 136.00-145.00 3.50-5.10 138 3.8 INR (PTT:PT) 0.90-1.10 1.1 Troponin I (ng/ml) CPK (u/l) CPK-MB (ng/ML) 0.02-0.05 26.00-308.00 0.50-3.60 0.02 66 Not Drawn Medication Medication Total Dose (Bolus/Oral) Medication Total Dosage/Unit 1% XYLOCAINE 20 mL BENADRYL 50 mg FENTANYL 100 mcg HEPARIN 3000 units OXYGEN 4 l/min PEPCID 20 mg RADIAL COCKTAIL 5 mL (Bolus) SOLU-CORTEF 100 mg VERSED 4 mg Medications (Bolus/Oral) Medication Time Given Dosage/Unit Administered By Reason SOLU-CORTEF 09/10/2017 11:03:09 AM 100 mg Lara Mahoney 100 mg SOLU-CORTEF given by Lara Mahoney, RN via Peripheral IV. PEPCID 09/10/2017 11:04:26 AM 20 mg Lara Mahoney 20 mg PEPCID given by Lara Mahoney RN via Peripheral IV. BENADRYL 09/10/2017 11:08:24 AM 50 mg Lara Mahoney 50 mg BENADRYL given in lab by Lara Mahoney RN via Peripheral IV. VERSED 09/10/2017 11:26:33 AM 2 mg Lara Mahoney 2 mg VERSED given in lab by Lara Mahoney RN via Peripheral IV. 1% XYLOCAINE 09/10/2017 11:27:45 AM 20 mL Bishop Chun 20 mL 1% XYLOCAINE given in lab by Bishop Chun in Right Radial via Subcutaneous. FENTANYL 09/10/2017 11:27:53 AM 50 mcg Lara Mahoney 50 mcg FENTANYL given in lab by Lara Mahoney RN via Peripheral IV. RADIAL COCKTAIL 09/10/2017 11:29:12 AM 5 mL (Bolus) Bishop Chun 5 mL (Bolus) RADIAL COCKTAIL given in lab by Bishop Chun via Radial. Using [Solution Name]. 200 ni tro FENTANYL 09/10/2017 11:31:00 AM 50 mcg Lara Mahoney 50 mcg FENTANYL given in lab by Lara Mahoney RN via Peripheral IV. VERSED 09/10/2017 11:31:51 AM 2 mg Lara Mahoney 2 mg VERSED given in lab by Lara Mahoney RN via Peripheral IV. HEPARIN 09/10/2017 11:32:30 AM 3000 units Lara Mahoney 3000 units HEPARIN given in lab by Lara Mahoney RN via Peripheral IV. OXYGEN 09/10/2017 11:38:02 AM 4 l/min Lara Mahoney 4 l/min OXYGEN given in lab by Lara Mahoney RN via Nasal. Medication (Drip) Medication Time Given Dosage/Unit Concentration/Unit Diluent (ml) Solution IV Solutions 09/10/2017 11:05:51 AM 0 mL (IV) 500 NaCl .9 IV Solutions given in lab by Lara Mahoney RN in Right Antecubital via Peripheral IV. Pump/Drip Fl ow = 20 ml/hr using NaCl .9. Initial Case Assessment Cardiovascular HR Rhythm NIBP Chest Pain 63 reg 124/83 0 Edema Present Skin color Skin None Normal Warm Circulatory - Right Pulses Dorsalis Pedis Femoral Radial 3 3 2 Scale (0,1,2,3,4,d) Scale (0,1,2,3,4,d) Circulatory - Lower Extremities Color Lower Right Normal Neurological State Oriented to time-place- Alert Moves all extremities person Respiration - General Respiration Rate SpO2 (%) (B/min) 20 97 Final Case Assessment Cardiovascular HR Rhythm NIBP Chest Pain 64 reg 124/73 0 Edema Present Skin color Skin None Normal Warm Circulatory - Right Pulses Dorsalis Pedis Femoral Radial 3 3 2 Scale (0,1,2,3,4,d) Scale (0,1,2,3,4,d) Circulatory - Lower Extremities Color Lower Right Normal Neurological State Oriented to time-place- Alert Moves all extremities person Respiration - General Respiration Rate SpO2 (%) (B/min) 14 97 Chronological Log Time Study Chronological Log 10:38:35 heparin discontinued in patients room 10:47:26 Patient arrived via Bed. 10:48:47 Patient Name, D.O.B, / Armband Verified By R.N. 10:49:54 Consent signed by the physician and the patient and verified by the Campus Security Director staff. 10:50:59 Pre-op and post- op instructions given; patient acknowledges understanding of instructions. 10:51:40 Verbal Stimulation=2 Physical Stimulation=2 Airway=2 Respiration=2 TOTAL=8. (0=absent, 1=li mited, 2=present) 10:58:10 Reference ECG taken Vitals capture started with the following parameters, Patient=Adult, Interval=5 min, Initial Pr usrril=659 mmHg, 10:59:14 Deflation Rate=5 mmHg, Cuff placed on left arm 11:00:26 HR=72 bpm, LSPW=060/64 mmhg, SpO2=96.0 %, Resp=11 B/min, Pain=0, Cirilo=10, Danielson=2 11:03:09 100 mg SOLU-CORTEF given by Lara Mahoney, RN via Peripheral IV. 11:03:11 Allens test performed on the left radial and ulnar artery by saúl with a positive resu lt 11:04:26 20 mg PEPCID given by Lara Mahoney, RN via Peripheral IV. 11:04:48 HR=64 bpm, CDCJ=835/83 mmhg, SpO2=95.0 %, Resp=15 B/min, Pain=0, Cirilo=10, Danielson=2 11:05:05 pt arrived with a nicotine patch on left shoulder 11:05:25 Patient has been NPO for More than 6Hrs. 11:05:26 Skin Breakdown-none 11:05:34 A # 20 IV was noted in the Antecubital (right). Grade = 0 IV Solutions given in lab by Lara Mahoney, RN in Right Antecubital via Peripheral IV. Pump/D rip Flow = 20 ml/hr 11:05:51 using NaCl .9. 11:06:07 History and physical on the chart or being dictated. Assessment: Initial Case, HR=63 BPM, Rhythm=reg, DJXU=930/83 mmhg, Chest Pain=0, Edema=None, Co lora=Normal, Skin = Warm Right Pulses: Anton Ped=3, Femoral=3, Radial=2 11:06:08 Lower Right Extremities: Color=Normal Neurological: State=Alert, Ox3, CARDONA Respiration: Resp=20 B/min, SpO2=97 % 11:06:45 Right Radial and groin(s) prepped with 2% chlorhexidine, and draped after a 3 min. waiting time. 11:08:24 50 mg BENADRYL given in lab by Lara Mahoney, SURESH via Peripheral IV. 11:09:45 HR=63 bpm, NIWX=414/81 mmhg, SpO2=95.0 %, Resp=20 B/min, Pain=0, Cirilo=10, Danielson=2 11:14:46 HR=65 bpm, JNLG=403/88 mmhg, SpO2=96.0 %, Resp=22 B/min, Pain=0, Cirilo=10, Danielson=2 11:19:20 Pressure channel 1 zeroed. 11:19:47 HR=65 bpm, NHXH=557/86 mmhg, SpO2=96.0 %, Resp=32 B/min, Pain=0, Cirilo=10, Danielson=2 11:20:27 MD responded 11:24:50 HR=66 bpm, BPWL=012/85 mmhg, SpO2=96.0 %, Resp=21 B/min, Pain=0, Cirilo=10, Danielson=2 11:25:51 MD arrived. 11:26:33 2 mg VERSED given in lab by Lara Mahoney, SURESH via Peripheral IV. 11:27:09 Case Start Time Out. Correct patient, correct procedure, correct physician, power injector not loaded with contrast with surgical 11:: team present. Time Out Concurred by MD and individual staff in procedure. 11:27:39 Verbal Stimulation=2 Physical Stimulation=2 Airway=2 Respiration=2 TOTAL=8. (0=absent, 1=li mited, 2=present) 11:27:45 20 mL 1% XYLOCAINE given in lab by Bishop Chun in Right Radial via Subcutaneous. 11::53 50 mcg FENTANYL given in lab by Lara Mahoney, RN via Peripheral IV. 11::51 Access site was Radial Artery. 11::56 A wire was inserted via Radial (right). A SHEATH, FR6 RADIAL PRELUDE EASE 11CM FR 6 was advanced into the Radial (right) using the Perc utaneous 11::05 technique. 11:29:12 5 mL (Bolus) RADIAL COCKTAIL given in lab by Bishop Chun via Radial. Using [Solution Nam e]. 200 nitro 11:29:47 HR=80 bpm, EXIL=620/91 mmhg, SpO2=97.0 %, Resp=16 B/min, Pain=0, Cirilo=10, Danielson=2 11:31:00 50 mcg FENTANYL given in lab by Lara Mahoney, SURESH via Peripheral IV. 11:31:[address] chun A JR 5.0 DXTERITY CATHETER fr 5 was advanced over a wire. OMNIPAQUE, 350 MG, 150ML 150ML was us ed for ::45 injections. 11::51 2 mg VERSED given in lab by Lara Mahoney, RN via Peripheral IV. 11:32:30 3000 units HEPARIN given in lab by Lara Mahoney, RN via Peripheral IV. 11:32:32 A WIRE, CHOICE PT EX. SUPPORT 182CM 180CM was inserted via Radial (right). 11:34:45 PT Wire removed 11:34:54 HR=67 bpm, CBPC=768/64 mmhg, SpO2=89.0 %, Resp=15 B/min, Pain=0, Cirilo=10, Danielson=2 11:35:07 A WIRE, EXCHANGE 260CM 3MMJ 260CM was inserted via Radial (right). 11:36:38 The RCA was injected and visualized at various angles. OMNIPAQUE, 350 MG, 150ML 150ML used . 11:36:39 Catheter was removed A JL 3.5 INFINITI CATHETER FR 5 was advanced over a wire. OMNIPAQUE, 350 MG, 150ML 150ML was us ed for 11:37:03 injections. 11:38:02 4 l/min OXYGEN given in lab by Lara Mahoney RN via Nasal. 11:38:34 The LCA was injected and visualized at various angles. OMNIPAQUE, 350 MG, 150ML 150ML use d. 11:39:01 Catheter was removed 11:39:34 Case End Assessment: Final Case, HR=64 BPM, Rhythm=reg, BKTM=674/73 mmhg, Chest Pain=0, Edema=None, Col or=Normal, Skin = Warm Right Pulses: Anton Ped=3, Femoral=3, Radial=2 11:39:36 Lower Right Extremities: Color=Normal Neurological: State=Alert, Ox3, CARDONA Respiration: Resp=14 B/min, SpO2=97 % 11:39:47 HR=66 bpm, KUJW=860/73 mmhg, SpO2=96.0 %, Resp=14 B/min, Pain=0, Cirilo=10, Danielson=2 11:40:30 Catheter(s) removed without difficulty Radial Compression Device Used. 12 mLs of air placed in BAND, RADIAL COMPRESSION TR SHORT 24 2 4CM. Affected 11:40:34 hand 98 % O2 saturation. 11:40:53 No case complications noted. 11:40:53 Cine recording checked. 11:40:56 Bedside Report will be given. 11:40:59 A Left Heart Cath was performed. 11:44:41 Vitals capture stopped. End Study - Contrast Media Used In Study Contrast Total Opened (mL) Total Used (mL) Total Wasted (mL) Omnipaque 15 15 0 End Study - Maximum Contrast Load Max Contrast Load (mL) 308.3 End Study - Radiation Exposure Fluoro Time (minutes) 2.6 End Study - Patient Disposition Complications Transferred To No Regular Bed
--- NOTE | 2017-09-10 12:14 | MA ---
cc: Bishop Gandhi MD DATE: 09/10/2017 INDICATION: Unstable angina. PROCEDURES PERFORMED: 1. Fluoroscopy with interpretation. 2. Coronary angiography. METHOD: Risks, benefits, and alternatives were discussed with the patient. The patient understood and consented to the procedure. The patient was brought to the cardiac catheterization lab, positioned on the catheterization table. The right wrist was prepped and draped in a sterile fashion. The right wrist was anesthetized with 2% lidocaine. The right radial artery was cannulated and a 6-Kyrgyz, 7-cm sheath was placed without difficulty. CORONARY ANGIOGRAPHY: 1. Left main coronary artery is angiographically normal. 2. Left anterior descending coronary artery is angiographically normal. 3. Left circumflex has mild luminal irregularities. There is a large high first obtuse marginal branch in a sub-branch, widely patent. 4. Right coronary has mild luminal irregularities. There is an acute marginal branch with mild to moderate ostial disease, but otherwise no significant obstructive abnormalities. CONCLUSIONS: Mild nonobstructive coronary disease. PLAN: The patient will be monitored closely for any postprocedural complications, initiated on anticoagulation for small sub-segmental pulmonary embolism. Bishop Gandhi MD SABRINA/SB , 11:43 AM , 12:13 PM
[2017-09-10 16:15] LABS: HEMOGLOBIN A1C 5.6 % (4.3-6.0)
[2017-09-10] MEDS: HEPARIN-D5W 25,000 U/250 ML 250 ML IV PRN (16:24)
[2017-09-10] MEDS: DOCUSATE SODIUM 50 MG/SENNA 8.6 MG TAB PO SCH ×2 (16:49→23:14)
--- NOTE | 2017-09-10 18:30 | ECHRPT ---
Indication: Chest pain, unspecified CONCLUSIONS The left ventricular systolic function is grossly normal on limited imaging. Trace mitral valve regurgitation. There is trace tricuspid valve regurgitation. BP: / HR: Rhythm: Sinus MEASUREMENTS (Male / Female) Normal Values Technical Quality:Fair 2D ECHO LV Diastolic Diameter PLAX 4.6 cm 4.2 - 5.9 / 3.9 - 5.3 cm LV Systolic Diameter PLAX 3.6 cm IVS Diastolic Thickness 1.1 cm 0.6 - 1.0 / 0.6 - 0.9 cm LVPW Diastolic Thickness 1.1 cm 0.6 - 1.0 / 0.6 - 0.9 cm LV Relative Wall Thickness 0.5 LVOT Diameter 1.9 cm M-MODE Aortic Root Diameter MM 3.0 cm LA Systolic Diameter MM 3.1 cm LA Ao Ratio MM 1.0 AV Cusp Separation MM 2.1 cm DOPPLER AV Peak Velocity 104.0 cm/s AV Peak Gradient 4.3 mmHg LVOT Peak Velocity 83.9 cm/s LVOT Peak Gradient 2.8 mmHg AV Area Cont Eq pk 2.3 cm Mitral E Point Velocity 64.7 cm/s Mitral A Point Velocity 53.8 cm/s Mitral E to A Ratio 1.2 LV E' Lateral Velocity 8.8 cm/s Mitral E to LV E' Lateral Ratio 7.4 LV E' Septal Velocity 7.2 cm/s Mitral E to LV E' Septal Ratio 9.0 TR Peak Velocity 200.0 cm/s TR Peak Gradient 16.0 mmHg Right Atrial Pressure 10.0 mmHg Pulmonary Artery Systolic Pressu 26.0 mmHg Right Ventricular Systolic Press 26.0 mmHg PV Peak Velocity 109.0 cm/s PV Peak Gradient 4.8 mmHg FINDINGS LEFT VENTRICLE The left ventricular systolic function is grossly normal on limited imaging. Wall thickness is normal. Normal left ventricular size. RIGHT VENTRICLE Normal right ventricular size and systolic function. LEFT ATRIUM The left atrial size is normal. RIGHT ATRIUM The right atrial size is normal. ATRIAL SEPTUM Normal atrial septal thickness AORTA The aortic root and proximal ascending aorta are normal in size on limited imaging. MITRAL VALVE Structurally normal mitral valve. No mitral valve stenosis. Trace mitral valve regurgitation. AORTIC VALVE Trileaflet aortic valve. No aortic valve stenosis or regurgitation. TRICUSPID VALVE Structurally normal tricuspid valve. There is trace tricuspid valve regurgitation. The estimated pulmonary arterial pressure is 26 mmHg. PULMONARY VALVE No pulmonary valve regurgitation or stenosis. VESSELS The inferior vena cava is normal in size. PERICARDIUM No pericardial effusion. Dread Muller DO (Electronically Signed) Final Date:10 September 2017 18:29
[2017-09-11] VITALS (7 sets, daily range): BP systolic 117–138; BP diastolic 79; PULSE 54–72; RESP 16–18; O2SAT 97
[2017-09-11] MEDS: MORPHINE SULFATE 2 MG/ML SYRINGE IV PUSH PRN ×2 (03:41→08:51)
[2017-09-11] MEDS: TEMAZEPAM 15 MG CAP PO PRN (03:41)
[2017-09-11 07:14] LABS: CHOLESTEROL/ HDL RATIO 6.19 RATIO; HDL CHOLESTEROL 44.4 MG/DL (40.0-60.0)
--- NOTE | 2017-09-11 08:00 | PD.CARD.PN ---
Subjective Subjective Remarks The patient is doing well today. Still with some chest ache, but states it is much less intense. All questions answered. Objective Medications Current Medications Medications (Trade) Dose Ordered Sig/Tevin Route Start Time Stop Time Status Last Admin (NS Flush) 2 ml UNSCH PRN IVF 09/09/17 15:30 Heparin Sodium/ Dextrose 250 ml @ 13 mls/hr TITRATE PRN IV 09/09/17 17:45 09/10/17 16:24 (Habitrol 21 Mg Patch.24 Hr) 1 patch DAILY T-DERMAL 09/09/17 21:00 09/10/17 08:05 ([place] 7.5-325 Mg) 1 tab Q6H PRN PO 09/09/17 18:45 09/10/17 16:50 (NS Flush) 2 ml UNSCH PRN IV FLUSH 09/09/17 18:45 (NS Flush) 2 ml BID IV FLUSH 09/09/17 21:00 09/10/17 21:00 (Zofran Inj) 4 mg Q6H PRN IVP 09/09/17 18:45 09/10/17 23:11 (Restoril) 15 mg HS PRN PO 09/09/17 18:45 09/11/17 03:41 (Morphine Inj) 4 mg Q3H PRN IV PUSH 09/09/17 18:45 09/11/17 03:41 (Narcan Inj) 0.4 mg UNSCH PRN IV PUSH 09/09/17 18:45 (Bessie-Colace) 1 tab BID PO 09/09/17 21:00 09/10/17 23:14 (Milk Of Magnesia Liq) 30 ml Q12H PRN PO 09/09/17 18:45 (Senokot) 17.2 mg Q12H PRN PO 09/09/17 18:45 (Dulcolax Supp) 10 mg DAILY PRN RECTAL 09/09/17 18:45 (Lactulose Liq) 30 ml DAILY PRN PO 09/09/17 18:45 (NS Flush) 2 ml BID IV FLUSH 09/10/17 21:00 09/10/17 21:00 (NS Flush) 2 ml UNSCH PRN IV FLUSH 09/10/17 11:45 (Lipitor) 40 mg HS PO 09/11/17 21:00 UNV Vital Signs / I&O Vital Signs Date Time Temp Pulse Resp B/P (MAP) Pulse Ox O2 Delivery O2 Flow Rate FiO2 09/11/17 06:27 16 09/11/17 04:00 66 09/11/17 04:00 62 16 138/79 (98) 97 09/11/17 04:00 72 09/11/17 03:00 54 09/11/17 02:00 58 09/11/17 01:00 58 09/11/17 00:00 56 09/11/17 00:00 56 09/10/17 23:00 62 09/10/17 22:22 66 16 125/79 (94) 96 09/10/17 22:00 58 09/10/17 21:08 97 21 09/10/17 21:00 58 09/10/17 20:00 58 09/10/17 20:00 60 16 148/95 (112) 97 09/10/17 20:00 62 09/10/17 19:00 62 09/10/17 18:30 18 09/10/17 18:00 60 09/10/17 17:00 70 09/10/17 16:00 64 09/10/17 15:30 97.9 62 18 124/79 (94) 97 09/10/17 15:00 59 09/10/17 14:00 66 09/10/17 13:00 65 09/10/17 13:00 68 09/10/17 12:00 98.0 70 18 110/86 (94) 94 09/10/17 12:00 70 09/10/17 10:00 66 09/10/17 09:00 60 09/10/17 08:00 64 I/O 09/10/17 09/10/17 09/10/17 09/11/17 09/11/17 09/11/17 07:00 15:00 23:00 07:00 15:00 23:00 Intake Total 0 ml 1450 ml 240 ml Output Total 225 ml 820 ml 750 ml Balance -225 ml 630 ml -510 ml Intake Oral 0 ml 1200 ml 240 ml IV Total 250 ml Output Urine Total 225 ml 820 ml 750 ml # Bowel Movements 0 Physical Exam GENERAL: Well-developed well-nourished. In no acute distress. NECK: No carotid bruits. No JVD. CARDIOVASCULAR: Regular rate and rhythm. No murmur appreciated. RESPIRATORY: No accessory muscle use. Clear to auscultation. Breath sounds equal bilaterally. MUSCULOSKELETAL: No clubbing or cyanosis. No edema. NEUROLOGICAL: Awake and alert. Normal speech. SKIN: Right wrist access site with no swelling or ecchymosis. Laboratory Laboratory Tests Test 09/10/17 10:10 09/10/17 20:48 09/11/17 05:30 09/11/17 06:09 Hemoglobin A1c 5.6 % Activated Partial Thromboplast Time 51.8 SEC 55.9 SEC Triglycerides Level 198 MG/DL Cholesterol Level 275 MG/DL LDL Cholesterol 191 MG/DL HDL Cholesterol 44.4 MG/DL Cholesterol/HDL Ratio 6.19 RATIO Imaging Last Impressions Lower Extremity Ultrasound 09/10/17 0000 Signed Impressions: Service Date/Time: Sunday, September 10, 2017 08:42 - CONCLUSION: 1. No sonographic evidence for lower extremity DVT. Corey Knutson MD Abdomen Ultrasound 09/10/17 0000 Signed Impressions: Service Date/Time: Sunday, September 10, 2017 08:18 - CONCLUSION: Abdominal ultrasound within normal limits. Ritchie Zhao MD Chest X-Ray 09/09/17 1529 Signed Impressions: Service Date/Time: Saturday, September 09, 2017 15:31 - CONCLUSION: No acute disease. Roddy Deluca MD CT Angiography 09/09/17 1529 Signed Impressions: Service Date/Time: Saturday, September 09, 2017 16:41 - CONCLUSION: 1. Single tiny pulmonary emboli in one of the medial right lower lobe pulmonary arteries. 2. The lungs are clear. 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 Suspect pain is pleuritic secondary to small PE, on heparin GTT, continue anticoagulation per primary team. Hyperlipidemia: With mild nonobstructive CAD and LDL 191, will start on atorvastatin. Patient is clear for discharge from a cardiology perspective Discussed Condition With Patient, Hakan Rayo Sep 11, 2017 08:00
[2017-09-11] MEDS: SODIUM CHLORIDE 0.9% FLUSH 10 ML FLUSH IV FLUSH SCH ×2 (08:51)
[2017-09-11] MEDS: DOCUSATE SODIUM 50 MG/SENNA 8.6 MG TAB PO SCH (08:51)
[2017-09-11] MEDS: ONDANSETRON HCL 4 MG/2 ML VIAL IVP PRN (08:51)
[2017-09-11] MEDS: NICOTINE 21 MG/24 HR PATCH T-DERMAL SCH (09:00)
--- NOTE | 2017-09-11 09:33 | HHI.PR ---
Subjective Remarks No chest pain. Pt is eager for discharge to home. Objective Vitals Vital Signs Date Time Temp Pulse Resp B/P (MAP) Pulse Ox O2 Delivery O2 Flow Rate FiO2 09/11/17 09:05 18 09/11/17 04:00 66 09/11/17 04:00 62 16 138/79 (98) 97 09/11/17 04:00 72 09/11/17 03:00 54 09/11/17 02:00 58 09/11/17 01:00 58 09/11/17 00:00 56 09/11/17 00:00 56 09/10/17 23:00 62 09/10/17 22:22 66 16 125/79 (94) 96 09/10/17 22:00 58 09/10/17 21:08 97 21 09/10/17 21:00 58 09/10/17 20:00 58 09/10/17 20:00 60 16 148/95 (112) 97 09/10/17 20:00 62 09/10/17 19:00 62 09/10/17 18:30 18 09/10/17 18:00 60 09/10/17 17:00 70 09/10/17 16:00 64 09/10/17 15:30 97.9 62 18 124/79 (94) 97 09/10/17 15:00 59 09/10/17 14:00 66 09/10/17 13:00 65 09/10/17 13:00 68 09/10/17 12:00 98.0 70 18 110/86 (94) 94 09/10/17 12:00 70 09/10/17 10:00 66 Result Diagram: 09/09/17 1533 09/10/17 0122 Imaging Last Impressions Lower Extremity Ultrasound 09/10/17 0000 Signed Impressions: Service Date/Time: Sunday, September 10, 2017 08:42 - CONCLUSION: 1. No sonographic evidence for lower extremity DVT. Corey Knutson MD Abdomen Ultrasound 09/10/17 0000 Signed Impressions: Service Date/Time: Sunday, September 10, 2017 08:18 - CONCLUSION: Abdominal ultrasound within normal limits. Ritchie Zhao MD Chest X-Ray 09/09/17 1529 Signed Impressions: Service Date/Time: Saturday, September 09, 2017 15:31 - CONCLUSION: No acute disease. Roddy Deluca MD CT Angiography 09/09/17 1529 Signed Impressions: Service Date/Time: Saturday, September 09, 2017 16:41 - CONCLUSION: 1. Single tiny pulmonary emboli in one of the medial right lower lobe pulmonary arteries. 2. The lungs are clear. Roddy Deluca MD Objective Remarks General: NAD, AAox3 Chest: CTA Cardiac: Regular Abd: +BS, soft ND/NT Ext: Several varicose veins to the right leg, right leg is large compared to left. 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 The patient reported 4 days of increasing episodes of left-sided chest pain that radiates to his back and down his left arm with associated episodes of increasing fatigue and shortness of breath over the weekend. These episodes have been occurring at rest, the patient denies being very active at baseline. - Serial CE were negative - serial EKGs did NOT show acute ischemic changes - [facility] (09/10/17) - mild to moderate non-occlusive CAD. - acute marginal branch with mild to moderate ostial disease - Pt cleared for discharge by Cardiology - lipitor 40mg qPM - f/u with Dr. Gandhi in 6 weeks - f/u with PCP in 1 week - see discharge orders. (2) Pulmonary embolism ICD Codes: I26.99 - Other pulmonary embolism without acute cor pulmonale Status: Acute Plan: - CTA (09/09) --> Single tiny pulmonary emboli in one of the medial right lower lobe pulmonary arteries. The lungs are clear. - Pt on Heparin prior to [facility] - b/ashli TERRY (09/10) --> no DVT - start xarelto 15mg PO BID x 3weeks, then convert to 20mg daily - f/u with PCP, Dr. Voss, in 1 week (3) Abnormal serum level of lipase ICD Codes: R74.8 - Abnormal levels of other serum enzymes Plan: - Pts lipase was 414 at admission, etiology unclear - Level normalized on 09/10 - Abd US (09/10) --> no acute abnormalities. (4) Tobacco abuse ICD Codes: Z72.0 - Tobacco use Status: Chronic Plan: - Pt counseled on the importance of smoking cessation. Problem Qualifiers (1) Chest pain: Qualified Codes: R07.9 - Chest pain, unspecified (2) Pulmonary embolism: Qualified Codes: I26.99 - Other pulmonary embolism without acute cor pulmonale Jose A Kenney DO Sep 11, 2017 09:33
[2017-09-11] MEDS ORDERED: XARE15TA PO (09:34)
[2017-09-11] MEDS ORDERED: LIPI40TA PO (09:34)
[2017-09-11] MEDS ORDERED: HYDR-3580 PO (09:34)
--- NOTE | 2017-09-11 09:40 | HHI.DCPOC ---
Discharge Care Plan Diagnosis: (1) Pulmonary embolism (2) CAD (coronary artery disease) (3) Hyperlipidemia Goals to Promote Your Health * To prevent worsening of your condition and complications * To maintain your health at the optimal level Directions to Meet Your Goals Take your medications as prescribed Follow your dietary instruction Follow activity as directed Keep your appointments as scheduled Take your immunizations and boosters as scheduled If your symptoms worsen call your PCP, if no PCP go to Urgent Care Center or Emergency Room Smoking is Dangerous to Your Health. Avoid second hand smoke Call the 24-hour hour crisis hotline for domestic abuse at 1) f/u with PCP, Dr. Bishop Voss, in 1 week 2) f/u with Cardiology, Dr. Bishop Gandhi, in 6 weeks. take new medications as directed 1) xarelto 15mg twice a day for 3 weeks, then 20mg daily 2) lipitor 40mg every evening. Jose A Kenney DO Sep 11, 2017 09:40
[2017-09-11] MEDS ORDERED: RIVAROXABAN 15 MG TAB PO ONE (09:45)
[2017-09-11] MEDS ORDERED: ATORVASTATIN 40 MG TAB PO SCH (21:00)
== END 2017-09-11 11:01 | disposition home or self-care (01) ==
LOC: PHED 15:11 → PHEDA 17:52 → HCIS 23:49
PROVIDERS: ADMIT Hospitalist; ATTEND Hospitalist
DX: I26.99 Other pulmonary embolism without acute cor pulmonale (principal); I25.110 Atherosclerotic heart disease of native coronary artery with unstable angina pectoris; E78.5 Hyperlipidemia, unspecified; Q87.2 Congenital malformation syndromes predominantly involving limbs; I82.509 Chronic embolism and thrombosis of unspecified deep veins of unspecified lower extremity; R06.02 Shortness of breath; R11.0 Nausea; K86.1 Other chronic pancreatitis; F17.210 Nicotine dependence, cigarettes, uncomplicated; R74.8 Abnormal levels of other serum enzymes; F41.9 Anxiety disorder, unspecified; F32.9 Major depressive disorder, single episode, unspecified; Z82.49 Family history of ischemic heart disease and other diseases of the circulatory system; Z79.01 Long term (current) use of anticoagulants; Z79.899 Other long term (current) drug therapy
CPT/HCPCS: 71045; 71275; 76700; 80053; 80061; 82550; 82948; 83036; 83690; 84484; 85025; 85610; 85730; 93005; 93306; 93454; 93970; 96365; 96366; 96374; 96375; 96376; 99152; 99285; C1769; C1893; G0378; J1200; J1644; J1720; J2250; J2270; J2405; J3010; Q9967